=== PATIENT | female | born 1960 | race African-American/Black ===

== ENCOUNTER 2019-11-22 15:13 | Day surgery (SDC) | payer OTHER ==
[2019-11-22] MEDS ORDERED: GLUCAGON,HUMAN RECOMB 1 MG INJ ONE (17:44)
[2019-11-22] MEDS ORDERED: EPINEPHRINE INJ 1 MG/10 ML DISP.SYRIN ONE (17:44)
[2019-11-22] MEDS ORDERED: DIPHENHYDRAMINE HCL 50 MG/ML VIAL ONE (17:44)
[2019-11-22] MEDS ORDERED: FENTANYL CITRATE INJ/PF 100 MCG/2 ML AMPUL ONE (17:44)
[2019-11-22] MEDS ORDERED: FLUMAZENIL INJ 0.5 MG/5 ML VIAL ONE (17:44)
[2019-11-22] MEDS ORDERED: ONDANSETRON HCL INJ/PF 4 MG/2 ML SDV ONE (17:44)
[2019-11-22] MEDS ORDERED: NALOXONE HCL INJ/PF 0.4 MG/1 ML SDV ONE (17:44)
[2019-11-22] MEDS: MIDAZOLAM 2 MG/2 ML INJ ONE ×2 (17:58→18:06)
--- NOTE | 2019-11-22 18:30 | Operative Report ---
Operative Report DATE OF SURGERY: 11/22/19 Operative Report: Pre-op diagnosis: History of jaundice and abdominal pain Post-op diagnosis: 1. Common bile duct sludge 2. Periampullary diverticulum Surgery: ERCP with sphincterotomy and balloon sludge extraction Medications: Versed 4mg Fentanyl 100mcg IV push Tissue removed: None Procedure: After informed consent obtained from patient, the throat was sprayed with Hurricane and conscious sedation was achieved. The ERCP endoscope was then inserted into the esophagus blindly and advanced into the stomach. The duodenum was entered and the ampulla was identified. Using the triple-lumen sphincterotomy catheter the common bile duct was freely cannulated. A ch olangiogram was obtained which showed possible filling defect in the distal common bile duct. The common bile duct and intrahepatic ducts did not appear dilated. A good sized sphincterotomy was then performed using the endocut mode. The catheter was removed over the guidewire before a 9-12 mm balloon catheter was inserted. The balloon was inflated to 12 mm in the proximal common bile duct and pulled down the duct. Some sludge was extracted. The duct was swept one more time. A balloon occlusion cholangiogram was normal. The pancreatic duct was cannulated and the pancreatogram was normal. Patient tolerated procedure well. Findings Common bile duct: The duct size was normal. Small amount of sludge was extracted with the balloon. There was a periampullary diverticulum Intrahepatic ducts: Normal Pancreatic duct: Normal Plan: Follow LFTs OPERATION: .
[2019-11-22 19:13] VITALS: BP 125/73
--- NOTE | 2019-11-23 14:56 | RADIOLOGY REPORT (SQ) ---
EXAM DESCRIPTION: ENDO CATH/BILIARY DUCT; NO CHG FLUORO COMPLETED DATE/TIME: 11/22/2019 6:46 pm REASON FOR STUDY: ERCP K80.20 CALCULUS OF GALLBLADDER W/O CHOLECYSTITIS W/O OBSTRUC COMPARISON: None. FLUOROSCOPY TIME: 2.5 minutes. 5 images saved to PACS. TECHNIQUE: Intra-operative images acquired during surgical procedure to evaluate progress. NUMBER OF IMAGES: 5 images. LIMITATIONS: None. FINDINGS: Images acquired during ERCP. IMPRESSION: IMAGE(S) OBTAINED DURING PROCEDURE. COMMENT: Quality ID 145: Final reports for procedures using fluoroscopy that document radiation exp osure indices, or exposure time and number of fluorographic images (if radiation exposure indices are not available) Please consult full operative report of the attending physician for description of the procedure. TECHNICAL DOCUMENTATION: JOB ID: [id number] [employer]- All Rights Reserved Reading location - IP/workstation name: [email or web address]
--- NOTE | 2019-11-23 14:56 | RADIOLOGY REPORT (SQ) ---
EXAM DESCRIPTION: ENDO CATH/BILIARY DUCT; NO CHG FLUORO COMPLETED DATE/TIME: 11/22/2019 6:46 pm REASON FOR STUDY: ERCP K80.20 CALCULUS OF GALLBLADDER W/O CHOLECYSTITIS W/O OBSTRUC COMPARISON: None. FLUOROSCOPY TIME: 2.5 minutes. 5 images saved to PACS. TECHNIQUE: Intra-operative images acquired during surgical procedure to evaluate progress. NUMBER OF IMAGES: 5 images. LIMITATIONS: None. FINDINGS: Images acquired during ERCP. IMPRESSION: IMAGE(S) OBTAINED DURING PROCEDURE. COMMENT: Quality ID [id number]: Final reports for procedures using fluoroscopy that document radiation exp osure indices, or exposure time and number of fluorographic images (if radiation exposure indices are not available) Please consult full operative report of the attending physician for description of the procedure. TECHNICAL DOCUMENTATION: JOB ID: [id number] [employer]- All Rights Reserved Reading location - IP/workstation name: [email or web address]
== END 2019-11-22 19:29 | disposition home or self-care (01) ==
LOC: OROUT 15:13
PROVIDERS: ATTEND Internal Medicine Gastroenterology
DX: K83.8 Other specified diseases of biliary tract (principal); K57.90 Diverticulosis of intestine, part unspecified, without perforation or abscess without bleeding; K80.20 Calculus of gallbladder without cholecystitis without obstruction; I10 Essential (primary) hypertension; E78.00 Pure hypercholesterolemia, unspecified; E11.9 Type 2 diabetes mellitus without complications; R94.5 Abnormal results of liver function studies; Z79.84 Long term (current) use of oral hypoglycemic drugs; Z79.51 Long term (current) use of inhaled steroids; Z79.82 Long term (current) use of aspirin; Z79.4 Long term (current) use of insulin; Z79.899 Other long term (current) drug therapy; Z88.2 Allergy status to sulfonamides; Z88.0 Allergy status to penicillin
CPT/HCPCS: 43264; 82962; 74328; J2250; J3010; J0171; J1200; J1610; J2310; J2405; J3490